=== PATIENT | male | born 2000 | race Caucasian/White ===

== ENCOUNTER 2018-06-15 12:18 | Emergency (ER) | payer OTHER ==
[~2018-06-15] VITALS: Ht 180.3 cm; Wt 102.1 kg
[2018-06-15 12:26] VITALS: Ht 180.3 cm; Wt 102.1 kg
[2018-06-15 14:17] LABS: BASOPHIL % 0.1 % (0-2); PLATELET COUNT 185 x10^3mcL (130-400); RED CELL DISTRIBUTION WIDTH 12.5 % (11.5-14.5)
[2018-06-15 14:31] LABS: CALCIUM 9.3 mg/dL (8.5-10.1); CARBON DIOXIDE 28.1 mmol/L (21-32); CHLORIDE SERUM 102 mmol/L (98-107); CREATININE SERUM 0.8 mg/dL (0.7-1.3); GFR1 > 60 mL/min; GLUCOSE SERUM 89 mg/dL (74-106); POTASSIUM SERUM 4.6 mmol/L (3.5-5.1); SODIUM SERUM 137 mmol/L (136-145)
[2018-06-15 14:48] LABS: AMPHETAMINE QUAL UR POSITIVE (See below)
[2018-06-15 15:28] VITALS: BP 141/78
== END 2018-06-15 15:28 | disposition home or self-care (01) ==
LOC: ED 12:18
PROVIDERS: Emergency Medicine
DX: F19.10 Other psychoactive substance abuse, uncomplicated (principal); K02.9 Dental caries, unspecified; R07.89 Other chest pain; Z98.890 Other specified postprocedural states; Z91.040 Latex allergy status; Z91.018 Allergy to other foods; Z91.013 Allergy to seafood
CPT/HCPCS: J1885; Q0092

== ENCOUNTER 2019-09-24 13:31 | Emergency (ER) | payer OTHER ==
[~2019-09-24] VITALS: Ht 180.3 cm; Wt 117.9 kg
[2019-09-24 13:36] VITALS: BP 114/69; Ht 180.3 cm; Wt 117.9 kg
== END 2019-09-24 18:00 | disposition home or self-care (01) ==
LOC: ED 13:31
DX: F41.0 Panic disorder [episodic paroxysmal anxiety] (principal); F43.10 Post-traumatic stress disorder, unspecified; F17.210 Nicotine dependence, cigarettes, uncomplicated; E66.9 Obesity, unspecified; Z68.36 Body mass index [BMI] 36.0-36.9, adult; Z98.890 Other specified postprocedural states; Z91.018 Allergy to other foods; Z91.013 Allergy to seafood; Z91.040 Latex allergy status; X58.XXXA Exposure to other specified factors, initial encounter; Y93.89 Activity, other specified; Y92.89 Other specified places as the place of occurrence of the external cause; Y99.8 Other external cause status
CPT/HCPCS: 99406; J1630; J2060

== ENCOUNTER 2019-09-28 19:18 | Observation (INO) | payer OTHER ==
[~2019-09-28] VITALS: Ht 180.3 cm; Wt 120.7 kg
[2019-09-28 19:25] VITALS: Ht 180.3 cm; Wt 120.7 kg
[2019-09-28 20:04] LABS: BASOPHIL % 0.4 % (0-2); PLATELET COUNT 189 x10^3mcL (130-400); RED CELL DISTRIBUTION WIDTH 12.9 % (11.5-14.5)
[2019-09-28 20:22] LABS: CARBON DIOXIDE 25.9 mmol/L (21-32); CHLORIDE SERUM 104 mmol/L (98-107); GFR1 > 60 mL/min; GLUCOSE SERUM 187 mg/dL (74-106); POTASSIUM SERUM 3.3 mmol/L (3.5-5.1); SODIUM SERUM 140 mmol/L (136-145)
[2019-09-28 20:26] LABS: ALBUMIN 3.5 g/dL (3.4-5.0); ALKALINE PHOSPHATASE 72 U/L (46-116); ALT/SGPT 91 U/L (16-63); AST/SGOT 90 U/L (15-37); BILIRUBIN TOTAL 0.3 mg/dL (0.20-1.00); TOTAL PROTEIN, SERUM 7.2 g/dL (6.4-8.2)
[2019-09-28 22:56] VITALS: BP 150/86
[2019-09-29 04:28] VITALS: BP 110/69
[2019-09-29 05:51] LABS: BASOPHIL % 0.4 % (0-2); PLATELET COUNT 165 x10^3mcL (130-400); RED CELL DISTRIBUTION WIDTH 13.1 % (11.5-14.5)
[2019-09-29 06:10] LABS: CALCIUM 8.3 mg/dL (8.5-10.1); CHLORIDE SERUM 107 mmol/L (98-107); CREATININE SERUM 0.8 mg/dL (0.7-1.3); GFR1 > 60 mL/min; GLUCOSE SERUM 99 mg/dL (74-106); POTASSIUM SERUM 4.2 mmol/L (3.5-5.1); SODIUM SERUM 142 mmol/L (136-145)
[2019-09-29 08:10] VITALS: BP 113/73
[2019-09-29 10:57] LABS: AMPHETAMINE QUAL UR NONE DETECTED (See below)
[2019-09-29 11:54] VITALS: BP 113/73
== END 2019-09-29 12:18 | disposition home or self-care (01) ==
LOC: ED 19:18 → DU 20:55
PROVIDERS: Emergency Medicine; ADMIT Internal Medicine Pulmonary Disease
DX: T40.601A Poisoning by unspecified narcotics, accidental (unintentional), initial encounter (principal); T43.91XA Poisoning by unspecified psychotropic drug, accidental (unintentional), initial encounter; E87.6 Hypokalemia; F31.9 Bipolar disorder, unspecified; F43.10 Post-traumatic stress disorder, unspecified; D72.829 Elevated white blood cell count, unspecified; M54.9 Dorsalgia, unspecified
CPT/HCPCS: 36600; C9113; G0378; G0480; J2310; J2405; J3480; J7050